=== PATIENT | male | born 1945 | race Caucasian/White ===

== ENCOUNTER 2018-07-10 09:56 | Day surgery (SDC) | payer MEDICARE, BC ==
[~2018-07-10] VITALS: Ht 182.9 cm; Wt 109.1 kg
[2018-07-10] VITALS (13 sets, daily range): BP systolic 115–170; BP diastolic 60–106
[2018-07-10] MEDS ORDERED: MIDAZolam 5mg/ml 2ml vial IV ONE (10:10)
[2018-07-10] MEDS ORDERED: normal saline 1000ml 1,000 ML IV SCH (10:10)
[2018-07-10] MEDS ORDERED: fentaNYL/PF 50MCG/1 ML 2ML syringe IV ONE (10:10)
[2018-07-10] MEDS ORDERED: AMLO2.5T2 PO (10:58)
[2018-07-10] MEDS ORDERED: ENAL20TA PO (10:58)
[2018-07-10] MEDS ORDERED: HYDR-4353 PO (10:58)
[2018-07-10] MEDS ORDERED: METO25TA6 PO (10:58)
[2018-07-10] MEDS ORDERED: CHOL40002 PO (10:58)
[2018-07-10] MEDS ORDERED: APIX5TAB3 PO (10:58)
[2018-07-10] MEDS ORDERED: LEUP3.753 IM (11:01)
== END 2018-07-10 12:35 | disposition home or self-care (01) ==
LOC: SSTAY O 09:56
PROVIDERS: ATTEND Internal Medicine Interventional Cardiology
DX: I48.91 Unspecified atrial fibrillation (principal); I42.9 Cardiomyopathy, unspecified; I10 Essential (primary) hypertension; Z79.899 Other long term (current) drug therapy; Z85.46 Personal history of malignant neoplasm of prostate
CPT/HCPCS: 92960; 93005; J2250; J3010; J7030

== ENCOUNTER 2019-03-05 13:55 | Day surgery (SDC) | payer MEDICARE, BC ==
[~2019-03-05] VITALS: Ht 182.9 cm; Wt 103.9 kg
[2019-03-05] VITALS (14 sets, daily range): BP systolic 110–168; BP diastolic 62–85
[~2019-03-05 13:55] MED LIST: AMLO2.5T2 PO; APIX5TAB3 PO; CHOL40002 PO; ENAL20TA PO; HYDR-4353 PO; LEUP3.753 IM; METO25TA6 PO
[2019-03-05] MEDS ORDERED: normal saline 1000ml 1,000 ML IV SCH (14:35)
[2019-03-05] MEDS ORDERED: MIDAZolam 5mg/ml 2ml vial IV ONE (14:35)
[2019-03-05] MEDS ORDERED: fentaNYL/PF 50MCG/1 ML 2ML syringe IV ONE (14:35)
[2019-03-05] MEDS ORDERED: FLEC50TA PO (14:39)
[2019-03-05] MEDS ORDERED: CARV3.12 PO (14:39)
[2019-03-05] MEDS ORDERED: CHOL10006 PO (14:39)
[2019-03-05] MEDS ORDERED: ACET-2615 PO (14:39)
[2019-03-05 15:06] LABS: BASOPHILS % (AUTO) 0.5 % (0-1); EOSINOPHILS # (AUTO) 0.1 X10'3 (0-0.9); HEMATOCRIT 36.9 % (42.0-52.0); HEMOGLOBIN 12.8 g/dl (14.0-17.9); LYMPHOCYTES # (AUTO) 2.5 X10'3 (1.1-4.8); LYMPHOCYTES % (AUTO) 42.8 % (21-51); MEAN CORPUSCULAR HEMOGLOBIN 32.8 PG (27.0-31.0); MEAN CORPUSCULAR HGB CONC 34.8 g/dL (33.0-36.5); MEAN CORPUSCULAR VOLUME 94.3 FL (78-98); MEAN PLATELET VOLUME 8.4 FL (7.4-10.4); MONOCYTES # (AUTO) 0.4 X10'3 (0-0.9); NEUTROPHILS # (AUTO) 2.8 X10'3 (1.8-7.7); NEUTROPHILS % (AUTO) 47.7 % (42-75); PLATELET COUNT 232 X10'3 (140-440); RED BLOOD COUNT 3.91 X10'6 (4.70-6.10); RED CELL DISTRIBUTION WIDTH 13.5 % (11.5-14.5); WHITE BLOOD COUNT 5.8 X10'3 (4.5-11.0)
[2019-03-05 15:36] LABS: ALANINE AMINOTRANSFERASE 24 U/L (12-78); ALBUMIN 3.8 G/DL (3.4-5.0); ALBUMIN/GLOBULIN RATIO 1.2 (1.1-1.5); ALKALINE PHOSPHATASE 84 IU/L (46-116); ANION GAP 9 (8-16); ASPARTATE AMINO TRANSFERASE 29 U/L (10-37); BILIRUBIN,TOTAL 0.6 MG/DL (0.1-1.0); BLOOD UREA NITROGEN 16 MG/DL (7-18); BUN/CREATININE RATIO 11.9 (5.4-32.0); CALCIUM 8.7 MG/DL (8.5-10.1); CHLORIDE 106 MMOL/L (99-107); CREATININE 1.35 MG/DL (0.60-1.10); GLUCOSE 103 MG/DL (70-104); POTASSIUM 4.8 MMOL/L (3.5-5.1); SODIUM 140 MMOL/L (135-145); TOTAL CARBON DIOXIDE 25.3 MMOL/L (24-32); TOTAL PROTEIN 7.1 G/DL (6.4-8.2); eGFR 52 ML/MIN
== END 2019-03-05 18:45 | disposition home or self-care (01) ==
LOC: SSTAY O 13:55
PROVIDERS: ATTEND Internal Medicine Interventional Cardiology
DX: I48.0 Paroxysmal atrial fibrillation (principal); I10 Essential (primary) hypertension; Z85.46 Personal history of malignant neoplasm of prostate; Z79.899 Other long term (current) drug therapy
CPT/HCPCS: 36415; 80053; 85025; 85610; 92960; 93005; 94760; J2250; J3010; J7030

== ENCOUNTER → 2023-02-02 | Outpatient (CLI) | payer MEDICARE, BC ==
[~2023-02-02] MED LIST changes: +ACET-2615 PO; +CARV3.12 PO; +CHOL10006 PO; -CHOL40002 PO; +ENAL-79 PO; -ENAL20TA PO; +FLEC50TA PO; -LEUP3.753 IM; -METO25TA6 PO; +iohexol 350MG/ML 100ml bottle IV ONE
[2023-02-02 10:13] LABS: BASOPHILS % (AUTO) 0.5 % (0-1); EOSINOPHILS # (AUTO) 0.1 X10'3 (0-0.9); EOSINOPHILS % (AUTO) 1.9 % (0-6); HEMATOCRIT 41.9 % (42.0-52.0); HEMOGLOBIN 14.2 g/dl (14.0-17.9); LYMPHOCYTES # (AUTO) 2.4 X10'3 (1.1-4.8); LYMPHOCYTES % (AUTO) 42.5 % (21-51); MEAN CORPUSCULAR HEMOGLOBIN 34.5 PG (27.0-31.0); MEAN CORPUSCULAR VOLUME 101.4 FL (78-98); MONOCYTES # (AUTO) 0.6 X10'3 (0-0.9); MONOCYTES % (AUTO) 11.2 % (2-12); NEUTROPHILS # (AUTO) 2.5 X10'3 (1.8-7.7); NEUTROPHILS % (AUTO) 43.9 % (42-75); PLATELET COUNT 237 X10'3 (140-440); RED BLOOD COUNT 4.13 X10'6 (4.70-6.10); RED CELL DISTRIBUTION WIDTH 13.6 % (11.5-14.5); WHITE BLOOD COUNT 5.7 X10'3 (4.5-11.0)
[2023-02-02 10:19] LABS: APTT 28 SECONDS (22-32); PROTHROMBIN TIME 10.8 SECONDS (9.0-12.0)
[2023-02-02 10:20] LABS: ALANINE AMINOTRANSFERASE 24 U/L (12-78); ALBUMIN/GLOBULIN RATIO 0.9 (1.1-1.5); ALKALINE PHOSPHATASE 93 IU/L (46-116); ANION GAP 10 (8-16); ASPARTATE AMINO TRANSFERASE 16 U/L (10-37); BILIRUBIN,TOTAL 0.9 MG/DL (0.1-1.0); BLOOD UREA NITROGEN 24 MG/DL (7-18); CALCIUM 9.1 MG/DL (8.5-10.1); CHLORIDE 102 MMOL/L (99-107); CREATININE 1.26 MG/DL (0.60-1.10); GLUCOSE 106 MG/DL (70-104); POTASSIUM 4.6 MMOL/L (3.5-5.1); SODIUM 136 MMOL/L (135-145); TOTAL CARBON DIOXIDE 24.5 MMOL/L (24-32); TOTAL PROTEIN 8.4 G/DL (6.4-8.2); eGFR 55 ML/MIN
== END | disposition home or self-care (01) ==
LOC: 64 CT 09:31
PROVIDERS: ATTEND Student in an Organized Health Care Education/Training Program
DX: I48.91 Unspecified atrial fibrillation (principal); I48.92 Unspecified atrial flutter; I25.10 Atherosclerotic heart disease of native coronary artery without angina pectoris
CPT/HCPCS: 36415; 75573; 80053; 85025; 85610; 85730; J3490; Q9967

== ENCOUNTER 2023-05-02 12:00 | Day surgery (SDC) | payer MEDICARE, BC ==
[2023-05-02] VITALS (12 sets, daily range): BP systolic 139–180; BP diastolic 66–89; PULSE 72–96; RESP 16–18; TEMP 98; O2SAT 95–97
[~2023-05-02] VITALS: Ht 182.9 cm; Wt 107.8 kg
[~2023-05-02 12:00] MED LIST changes: -ACET-2615 PO; +AMLO10TA PO; -AMLO2.5T2 PO; +ATOR40TA PO; -CARV3.12 PO; -FLEC50TA PO; +HYDR-3965 PO; -HYDR-4353 PO; -iohexol 350MG/ML 100ml bottle IV ONE
[2023-05-02] MEDS ORDERED: HYDR-3972 PO (12:39)
[2023-05-02] MEDS: fentaNYL/PF 50MCG/1 ML 2ML syringe IV ONE (12:55)
[2023-05-02 13:00] LABS: BASOPHILS % (AUTO) 0.4 % (0-1); EOSINOPHILS # (AUTO) 0.1 X10'3 (0-0.9); EOSINOPHILS % (AUTO) 1.6 % (0-6); HEMATOCRIT 38.6 % (42.0-52.0); HEMOGLOBIN 13.2 g/dl (14.0-17.9); LYMPHOCYTES # (AUTO) 2.2 X10'3 (1.1-4.8); LYMPHOCYTES % (AUTO) 42.1 % (21-51); MEAN CORPUSCULAR HEMOGLOBIN 34.1 PG (27.0-31.0); MEAN CORPUSCULAR HGB CONC 34.2 g/dL (33.0-36.5); MEAN CORPUSCULAR VOLUME 99.8 FL (78-98); MONOCYTES # (AUTO) 0.6 X10'3 (0-0.9); MONOCYTES % (AUTO) 11.2 % (2-12); NEUTROPHILS # (AUTO) 2.3 X10'3 (1.8-7.7); NEUTROPHILS % (AUTO) 44.7 % (42-75); PLATELET COUNT 232 X10'3 (140-440); RED BLOOD COUNT 3.87 X10'6 (4.70-6.10); RED CELL DISTRIBUTION WIDTH 13.1 % (11.5-14.5); WHITE BLOOD COUNT 5.2 X10'3 (4.5-11.0)
[2023-05-02 13:15] LABS: ALBUMIN 3.9 G/DL (3.4-5.0); ANION GAP 12 (8-16); APTT 26 SECONDS (22-32); BLOOD UREA NITROGEN 26 MG/DL (7-18); BUN/CREATININE RATIO 21.5 (10.0-20.0); CALCIUM 9.1 MG/DL (8.5-10.1); CHLORIDE 109 MMOL/L (99-107); CREATININE 1.21 MG/DL (0.60-1.10); GLUCOSE 102 MG/DL (70-104); POTASSIUM 4.4 MMOL/L (3.5-5.1); PROTHROMBIN TIME 10.9 SECONDS (9.0-12.0); SODIUM 143 MMOL/L (135-145); TOTAL CARBON DIOXIDE 21.8 MMOL/L (24-32); eCRCL 54 ML/MIN; eGFR 58 ML/MIN
[2023-05-02] MEDS: MIDAZolam 1mg/ml 10ml vial IV ONE (14:50)
== END 2023-05-02 16:00 | disposition home or self-care (01) ==
LOC: SSTAY O 12:00 → EDSTATUS 14:30 → SSTAY O 16:00
PROVIDERS: ATTEND Student in an Organized Health Care Education/Training Program
DX: Z45.09 Encounter for adjustment and management of other cardiac device (principal); I11.9 Hypertensive heart disease without heart failure; D47.2 Monoclonal gammopathy; I48.0 Paroxysmal atrial fibrillation; I48.92 Unspecified atrial flutter; Z85.46 Personal history of malignant neoplasm of prostate; Z79.899 Other long term (current) drug therapy; Z79.01 Long term (current) use of anticoagulants; Z88.8 Allergy status to other drugs, medicaments and biological substances
CPT/HCPCS: 36415; 80048; 85025; 85610; 85730; 93312; 93325; J2250; J3010; A4620